=== PATIENT | male | born 1995 | race Hispanic/Latino ===

== ENCOUNTER 2017-08-04 21:46 | Emergency (ER) | payer SELFPAY ==
[2017-08-04] MEDS ORDERED: TETANUS & DIPHTHERIA TOX,ADULT 0.5 ML VIAL ONE (23:45)
[2017-08-04] MEDS ORDERED: BUPIVACAINE 0.5% PF 10 ML VIAL ONE (23:45)
[2017-08-04] MEDS ORDERED: LIDOCAINE 1% MPF 5 ML VIAL ONE (23:45)
--- NOTE | 2017-08-05 00:51 | ER ---
Nurse's Notes [facility] Name: Nhan Turner Age: 22 yrs Sex: Male : 1995 Arrival Date: 08/04/2017 Time: 21:48 Bed 25 Private MD: Diagnosis: Subungual hematoma;Laceration without foreign body of right middle finger with damage to nail Presentation: 08/04 21:52 Presenting complaint: Friend states: "The car door got his finger (right 2nd and 3rd). lk1 Transition of care: patient was not received from another setting of care. Onset of symptoms was August 04, 2017 at 21:30. Initial Sepsis Screen: Does the patient meet any 2 criteria? No. Patient's initial sepsis screen is negative. Does the patient have a suspected source of infection? No. Patient's initial sepsis screen is negative. Care prior to arrival: None. 21:52 Method Of Arrival: Ambulatory lk1 21:52 Acuity: BEN 3 lk1 Triage Assessment: 21:54 General: Appears in no apparent distress. Behavior is calm, cooperative, appropriate lk1 for age. Pain: Complains of pain in right hand Pain currently is 8 out of 10 on a pain scale. Musculoskeletal: Swelling present in right middle fingernail and right ring fingernail. Injury Description: Bruise Crush injury. Historical: - Allergies: 21:53 Bees; lk1 - PMHx: 21:53 None; lk1 - PSHx: 21:53 None; lk1 - Immunization history:: Adult Immunizations up to date, Last tetanus immunization: unknown. - Social history:: Smoking status: Patient/guardian denies using tobacco. Screenin/02 01:07 Abuse screen: Denies threats or abuse. Denies injuries from another. Nutritional lk1 screening: No deficits noted. Tuberculosis screening: No symptoms or risk factors identified. Fall Risk None identified. Assessment: 08/04 23:45 General: Appears in no apparent distress. Behavior is calm, cooperative, appropriate lk1 for age. Pain: Complains of pain in right hand Pain currently is 8 out of 10 on a pain scale. Pain began 1 hour ago. Neuro: Level of Consciousness is awake, alert, obeys commands, Oriented to person, place, time, situation, Appropriate for age. Cardiovascular: Capillary refill is brisk Patient's skin is warm and dry. Pulses are palpable in right radial artery. Respiratory: Airway is patent Respiratory effort is even, unlabored, Respiratory pattern is regular, symmetrical. GI: No signs and/or symptoms were reported involving the gastrointestinal system. Derm: Bruising that is dark purple, on right middle fingernail and right ring fingernail. Musculoskeletal: Swelling present in right hand. Vital Signs: 21:54 BP 134 / 76; Pulse 55; Resp 16; Temp 98.0(TE); Pulse Ox 100% on R/A; Weight 86.18 kg lk1 (R); Height 5 ft. 8 in. (172.72 cm) (R); Pain 8/; 08/05 00:45 BP 117 / 72; Pulse 62; Resp 15; Pulse Ox 100% on R/A; lk1 08/04 21:54 Body Mass Index 28.89 (86.18 kg, 172.72 cm) lk ED Course: 08/04 21:48 Patient arrived in ED. al2 21:49 Joelle Yang FNP-C [facility] kb 21:49 Victoriano Benavidez MD is Attending Physician. kb 21:53 Triage completed. lk1 21:56 Arm band placed on left wrist. lk1 23:43 Ana Rosa Mckeon, ROMAINE is Primary Nurse. lk1 23:44 Hand Right 3 View XRAY In Process Unspecified. EDMS 23:46 X-ray completed. Portable x-ray completed in exam room. Patient tolerated procedure kw well. 08/05 00:51 Sergio Manning MD is Referral Physician. kb 01:07 Patient has correct armband on for positive identification. Bed in low position. Call lk1 light in reach. Adult w/ patient. 01:08 Assist provider with nail repair of avulsion of right middle finger Set up for lk1 procedure. Performed by Joelle OLMOS Dressed with tube gauze Patient tolerated well. Patient did not have IV access during this emergency room visit. Administered Medications: 08/04 23:48 Not Given (Patient Refused; patient states he had shot at last ED visit): lk1 Tetanus-Diphtheria Toxoid Adult 0.5 ml IM once 08/05 00:15 Drug: Lidocaine (1 %) 1 vials {Note: used by BANQUET COOK at bedside.} Volume: 5 ml; Route: lk1 Infiltration; 00:16 Drug: Marcaine (0.5 %) 1 vials {Note: used by BANQUET COOK at bedside.} Volume: 10 ml; Route: lk1 Infiltration; 00:55 Drug: Haviland (7.5 mg-325 mg) 1 tabs Route: PO; lk1 01:04 Follow up: Response: Medication administered at discharge. lk1 Outcome: 00:51 Discharge ordered by . david 01:09 Discharged to home ambulatory, with family. lk1 01:09 Condition: good 01:09 Discharge instructions given to patient, family, Instructed on discharge instructions, follow up and referral plans. medication usage, safety practices, wound care, Demonstrated understanding of instructions, follow-up care, medications, wound care. 01:09 Patient left the ED. lk1 Signatures: Dispatcher [employer] EDMS Joelle Yang, AMARILIS FARR-Alena Estrella Leah, RN RN lk1 Sharon Ahuja
--- NOTE | 2017-08-05 00:52 | EDPHYS ---
Physician Documentation [facility] Name: Nhan Turner Age: 22 yrs Sex: Male : 1995 Arrival Date: 08/04/2017 Time: 21:48 Bed 25 Private MD: ED Physician Victoriano Benavidez HPI: 08/05 00:48 This 22 yrs old Male presents to ER via Ambulatory with complaints of Finger kb Injury. 00:48 The patient or guardian reports injury, a laceration, pain, swelling. The complaints kb affect the right middle finger and right ring finger. Context: The problem was sustained outdoors, resulted from a crush injury, by a car door. Onset: The symptoms/episode began/occurred just prior to arrival. Modifying factors: The symptoms are alleviated by nothing, the symptoms are aggravated by nothing. Associated signs and symptoms: Pertinent negatives: cyanosis distally, decreased sensation distally, fever, nausea, numbness distally, tingling distally, vomiting. Severity of symptoms: At their worst the symptoms were mild, moderate, in the emergency department the symptoms are unchanged. The patient has not experienced similar symptoms in the past. The patient has not recently seen a physician. Pt reports he shut the car door on 3rd and 4th digits of right hand. Laceration to middle finger with nail out of nailbed. Historical: - Allergies: 08/04 21:53 Bees; lk1 - PMHx: 21:53 None; lk1 - PSHx: 21:53 None; lk1 - Immunization history:: Adult Immunizations up to date, Last tetanus immunization: unknown. - Social history:: Smoking status: Patient/guardian denies using tobacco. ROS: 08/05 00:48 Constitutional: Negative for fever, chills, and weight loss, Cardiovascular: Negative kb for chest pain, palpitations, and edema, Respiratory: Negative for shortness of breath, cough, wheezing, and pleuritic chest pain, Abdomen/GI: Negative for abdominal pain, nausea, vomiting, diarrhea, and constipation, Neuro: Negative for headache, weakness, numbness, tingling, and seizure. Skin: Positive for laceration(s), of the right middle fingernail. Exam: 00:47 Constitutional: This is a well developed, well nourished patient who is awake, alert, kb and in no acute distress. Head/Face: Normocephalic, atraumatic. Chest/axilla: Normal chest wall appearance and motion. Nontender with no deformity. No lesions are appreciated. Cardiovascular: Regular rate and rhythm with a normal S1 and S2. No gallops, murmurs, or rubs. Normal PMI, no JVD. No pulse deficits. Respiratory: Lungs have equal breath sounds bilaterally, clear to auscultation and percussion. No rales, rhonchi or wheezes noted. No increased work of breathing, no retractions or nasal flaring. Abdomen/GI: Soft, non-tender, with normal bowel sounds. No distension or tympany. No guarding or rebound. No evidence of tenderness throughout. Neuro: Awake and alert, GCS 15, oriented to person, place, time, and situation. Cranial nerves II-XII grossly intact. Motor strength 5/5 in all extremities. Sensory grossly intact. Cerebellar exam normal. Normal gait. 00:47 Musculoskeletal/extremity: Extremities: grossly normal except: noted in the right ring fingernail: subungual hematoma, noted in the right middle fingernail: laceration, swelling, nail out of bed, ROM: intact in all extremities, Circulation is intact in all extremities. Sensation intact. Vital Signs: 08/04 21:54 BP 134 / 76; Pulse 55; Resp 16; Temp 98.0(TE); Pulse Ox 100% on R/A; Weight 86.18 kg lk1 (R); Height 5 ft. 8 in. (172.72 cm) (R); Pain 8/10; 08/05 00:45 BP 117 / 72; Pulse 62; Resp 15; Pulse Ox 100% on R/A; lk1 08/04 21:54 Body Mass Index 28.89 (86.18 kg, 172.72 cm) lk1 Procedures: 00:32 Nerve block: (digital) of dorsal aspect of proximal phalanx of right middle finger david Medication: Lidocaine 1% without epinephrine Marcaine 0.5%, Amount: 6 mls were injected, Effect: the patient has resolution of the pain, Set up for procedure. Performed by Joelle OLMOS Patient tolerated well. MDM: 08/04 23:20 Patient medically screened. kb 08/05 00:31 Data reviewed: vital signs, nurses notes. Data interpreted: Pulse oximetry: on room air kb is 100 %. Interpretation: normal. 00:45 Counseling: I had a detailed discussion with the patient and/or guardian regarding: the kb historical points, exam findings, and any diagnostic results supporting the discharge/admit diagnosis, radiology results, the need for outpatient follow up, a family practitioner, to return to the emergency department if symptoms worsen or persist or if there are any questions or concerns that arise at home. ED course: Nail placed back into nailbed. Superficial avulsion noted above nailbed. Bleeding controlled. . 08/04 21:57 Order name: Hand Right 3 View XRAY lk1 Administered Medications: 08/04 23:48 Not Given (Patient Refused; patient states he had shot at last ED visit): lk1 Tetanus-Diphtheria Toxoid Adult 0.5 ml IM once 08/05 00:15 Drug: Lidocaine (1 %) 1 vials {Note: used by [employer] UTILITY OPERATOR at bedside.} Volume: 5 ml; Route: lk1 Infiltration; 00:16 Drug: Marcaine (0.5 %) 1 vials {Note: used by [employer] UTILITY OPERATOR at bedside.} Volume: 10 ml; Route: lk1 Infiltration; 00:55 Drug: Wise (7.5 mg-325 mg) 1 tabs Route: PO; lk1 01:04 Follow up: Response: Medication administered at discharge. lk1 Disposition: 06:46 Co-signature as Attending Physician, Victoriano Benavidez MD Available for consultation at ps1 all times. . Disposition: 08/05/17 00:51 Discharged to Home. Impression: Subungual hematoma, Laceration without foreign body of right middle finger with damage to nail. - Condition is Stable. - Discharge Instructions: Fingernail or Toenail Loss, Nail Bed Injury, [id number]. - Medication Reconciliation Form, Thank You Letter, Antibiotic Education, Prescription Opioid Use form. - Follow up: Emergency Department; When: As needed; Reason: Worsening of condition. Follow up: Private Physician; When: 2 - 3 days; Reason: Recheck today's complaints, Continuance of care, Re-evaluation by your physician. Follow up: eSrgio Manning MD; When: 2 - 3 days; Reason: Recheck today's complaints. Signatures: Dispatcher [employer] EDNE Joelle Yang, CHIKA-C CHIKA-Ana Rosa Pandey RN RN lk1 Victoriano Benavidez MD ps1
[2017-08-05] MEDS ORDERED: HYDROCODONE/APAP 7.5/325 MG TAB ONE (00:54)
--- NOTE | 2017-08-05 08:16 | RAD REPORT ---
EXAM DESCRIPTION: RAD - Hand Right 3 View - 08/04/2017 11:47 pm CLINICAL HISTORY: Trauma, pain COMPARISON: None. FINDINGS: Laceration is present involving the distal third digit in the region of the nail bed. No f racture or foreign body seen. Soft tissue swelling involves the distal third and fourth digits.
== END 2017-08-05 01:09 | disposition home or self-care (01) ==
LOC: ER 21:46
DX: S61.212A Laceration without foreign body of right middle finger without damage to nail, initial encounter (principal); W23.0XXA Caught, crushed, jammed, or pinched between moving objects, initial encounter; Y93.9 Activity, unspecified; Y92.9 Unspecified place or not applicable
CPT/HCPCS: 64450; 90714; 99283